=== PATIENT | female | born 2000 | race Caucasian/White ===

== ENCOUNTER 2024-01-28 08:52 | Emergency (ER) | payer OTHER ==
[2024-01-28 09:40] LABS: #Basophils 0.03 10x3/uL (0.0-0.2); #Eosinphils 0.03 10x3/uL (0.0-0.5); #Monocytes 1.57 10x3/uL (0.0-1.1); #Neutrophils 11.48 10x3/uL (1.5-8.4); %Basophils 0.2 % (0.0-2.0); %Eosinophils 0.2 % (0.0-6.0); %Lymphocytes 13.1 % (18.0-47.0); %Monocytes 10.4 % (0.0-10.0); %Neutrophils 75.7 % (40.0-75.0); Hematocrit 38.2 % (34.9-44.5); Hemoglobin 13.6 g/dL (12.0-15.5); Mean Corpuscular HGB CONC 35.6 g/dL (32.0-36.0); Mean Corpuscular Hemoglobin 30.5 pg (27.0-33.0); Mean Corpuscular Volume 85.7 fL (81.6-98.3); Mean Platelet Volume 9.1 fL (7.4-10.4); Platelet Count 367 10x3/uL (150-450); RBC Distribution Width 11.9 % (11.5-14.5); Red Blood Cell (RBC) Count 4.46 10x6/uL (3.90-5.03); White Blood Cell (WBC) Count 15.2 10x3/uL (3.5-10.5)
[2024-01-28] MEDS ORDERED: Ketorolac Tromethamine 30 MG (1 mL) VIAL ONE (09:45)
[2024-01-28 09:47] LABS: Bilirubin Neg (Negative); Blood, Urine Negative (Negative); Clarity Clear (Clear); Glucose, Urine (Dipstick) Normal (Negative); Ketone, Urine 150 mg/dL (Negative); Leukocyte 25 (Negative); Nitrite Negative (Negative); Protein, Urine (Dipstick) 30 mg/dl (Neg-Trace)
[2024-01-28 09:50] LABS: Pregnancy Test - Urine (BHCG) Negative (Negative); Pregu Control Background? CLEAR/WHITE (CLR/WHITE); Pregu Control Bar Appear? YES (CONTROL BAR)
[2024-01-28 09:54] LABS: ALT (SGPT) 13 U/L (8-55); AST (SGOT) 15 U/L (5-34); Albumin 3.8 g/dL (3.5-5.0); Alkaline Phosphatase 100 U/L (40-110); Anion Gap 17 mmol/L (10-20); BUN (Urea Nitrogen) 8 mg/dL (7.0-18.7); Calc. Creatinine Clearance 0 mL/min (70-130); Calcium 9.9 mg/dL (7.8-10.44); Carbon Dioxide 20 mmol/L (22-29); Chloride 101 mmol/L (98-107); Estimated GFR 111; Glucose 85 mg/dL (70-105); Lipase 7 U/L (8-78); Potassium 3.6 mmol/L (3.5-5.1); Protein, Total 7.8 g/dL (6.0-8.3); Sodium 134 mmol/L (136-145)
[2024-01-28 10:16] LABS: CAUTI Indications for Culture Pelvic or flank pain; RBC/HPF None Seen HPF (0-3); Squamous Epithelial 0-3 HPF (0-3); WBC/HPF 0-3 HPF (0-3)
[2024-01-28 10:17] LABS: Bacteria/HPF 4+ HPF (None Seen); Mucous/LPF 3+ LPF (<2+); Urine Culture Reflex No No
[2024-01-28] MEDS ORDERED: Acetaminophen 325 MG TAB ONE (11:34)
== END 2024-01-28 13:31 | disposition home or self-care (01) ==
LOC: CSHERS 08:52
DX: N83.201 Unspecified ovarian cyst, right side (principal); N39.0 Urinary tract infection, site not specified; D72.829 Elevated white blood cell count, unspecified; R11.10 Vomiting, unspecified
CPT/HCPCS: 36415; 74177; 76856; 80053; 81001; 81025; 83690; 85025; 87086; 96361; 96374; J1885

== ENCOUNTER 2024-02-01 13:26 | Inpatient (IN) | payer OTHER ==
[~2024-02-01 13:26] MED LIST: Iopamidol 370 76% 100 ML VIAL ONE
[2024-02-01 14:26] LABS: ALT (SGPT) 19 U/L (8-55); AST (SGOT) 23 U/L (5-34); Albumin 2.7 g/dL (3.5-5.0); Alkaline Phosphatase 184 U/L (40-110); Anion Gap 13 mmol/L (10-20); BUN (Urea Nitrogen) 7 mg/dL (7.0-18.7); Bilirubin, Total 0.8 mg/dL (0.2-1.2); Calc. Creatinine Clearance 0 mL/min (70-130); Calcium 9.2 mg/dL (7.8-10.44); Carbon Dioxide 21 mmol/L (22-29); Chloride 102 mmol/L (98-107); Estimated GFR 103; Glucose 119 mg/dL (70-105); Potassium 3.8 mmol/L (3.5-5.1); Protein, Total 6.7 g/dL (6.0-8.3); Sodium 132 mmol/L (136-145)
[2024-02-01 14:45] LABS: Bilirubin 1+ (Negative); Blood, Urine Negative (Negative); Clarity Clear (Clear); Glucose, Urine (Dipstick) Normal (Negative); Ketone, Urine 15 mg/dL (Negative); Leukocyte 25 (Negative); Nitrite Negative (Negative); Protein, Urine (Dipstick) 100 mg/dl (Neg-Trace); Specific Gravity, Urine 1.015 (1.005-1.030); Urobilinogen 12 mg/dL (Less than 2)
[2024-02-01] MEDS ORDERED: Ketorolac Tromethamine 30 MG (1 mL) VIAL ONE (14:49)
[2024-02-01] MEDS ORDERED: Ondansetron PF 4 MG/2 ML Vial ONE ×2 (14:49→18:20)
[2024-02-01] MEDS ORDERED: Piperacillin/Tazobactam 4.5 GM VIAL ONE (14:50)
[2024-02-01 14:54] LABS: #Basophils 0.04 10x3/uL (0.0-0.2); #Eosinphils 0.03 10x3/uL (0.0-0.5); #Monocytes 0.26 10x3/uL (0.0-1.1); #Neutrophils 13.92 10x3/uL (1.5-8.4); %Basophils 0.3 % (0.0-2.0); %Eosinophils 0.2 % (0.0-6.0); %Lymphocytes 2.6 % (18.0-47.0); %Monocytes 1.7 % (0.0-10.0); %Neutrophils 93.6 % (40.0-75.0); Hematocrit 33.3 % (34.9-44.5); Hemoglobin 11.2 g/dL (12.0-15.5); Mean Corpuscular HGB CONC 33.6 g/dL (32.0-36.0); Mean Corpuscular Hemoglobin 29.6 pg (27.0-33.0); Mean Corpuscular Volume 87.9 fL (81.6-98.3); Mean Platelet Volume 9.7 fL (7.4-10.4); Platelet Count 334 10x3/uL (150-450); RBC Distribution Width 12.4 % (11.5-14.5); Red Blood Cell (RBC) Count 3.79 10x6/uL (3.90-5.03); White Blood Cell (WBC) Count 14.9 10x3/uL (3.5-10.5)
[2024-02-01 15:53] LABS: CAUTI Indications for Culture Pelvic or flank pain; RBC/HPF 0-3 HPF (0-3)
[2024-02-01 15:54] LABS: Bacteria/HPF 3+ HPF (None Seen); Mucous/LPF 3+ LPF (<2+); Transitional Epithelial 0-3 HPF (None Seen)
[2024-02-01 15:56] LABS: Urine Culture Reflex No No
[2024-02-01] MEDS ORDERED: Morphine 4 MG/ML VIAL ONE (18:20)
[2024-02-01] MEDS ORDERED: Ipratropium/Albuterol 3 ML NEB ONE (19:15)
[2024-02-01 21:50] LABS: Magnesium 1.6 mg/dL (1.6-2.6)
[2024-02-01 21:53] VITALS: BMI 23.4
[2024-02-01] MEDS: Morphine 4 MG/ML VIAL SLOW IVP PRN (22:30)
[2024-02-01] MEDS: Guaifenesin DM 100-10/5 ML UDCUP PO PRN (22:31)
[2024-02-01] MEDS: Metoclopramide HCl 10 MG (2 mL) VIAL IVP SCH (22:31)
[2024-02-01] MEDS: Azithromycin 500 MG in Sodium Chloride 0.9% 250 ML 250 ML IVPB SCH (22:32)
[2024-02-01] MEDS: NS 0.9% w/ 20 MEQ KCL 1,000 ML/1,000 ML BAG IV SCH (22:32)
[2024-02-01] MEDS: Acetaminophen 325 MG TAB PO PRN (22:45)
[2024-02-02] MEDS: Lactated Ringer's 1,000 ML IV SCH (00:13)
[2024-02-02] MEDS: Piperacillin/Tazobactam 3.375 GM in Sodium Chloride 0.9% 100 ML IVPB SCH ×2 (00:14→04:09)
[2024-02-02] MEDS: FLU (Fluarix Triv) TS24-25(6MOS UP)/PF 45 MCG/0.5 ML Syringe IM ONE (02:30)
[2024-02-02] MEDS: Magnesium 2 GM/50 ML(in water) 2 GM in Premix 1 BAG IVPB SCH (04:28)
[2024-02-02 04:38] LABS: Anion Gap 14 mmol/L (10-20); BUN (Urea Nitrogen) 5 mg/dL (7.0-18.7); Calc. Creatinine Clearance 108 mL/min (70-130); Calcium 7.7 mg/dL (7.8-10.44); Carbon Dioxide 18 mmol/L (22-29); Chloride 110 mmol/L (98-107); Estimated GFR 124; Glucose 84 mg/dL (70-105); Potassium 3.5 mmol/L (3.5-5.1); Sodium 138 mmol/L (136-145)
[2024-02-02 04:45] LABS: #Basophils 0.02 10x3/uL (0.0-0.2); #Eosinphils 0.03 10x3/uL (0.0-0.5); #Monocytes 0.33 10x3/uL (0.0-1.1); #Neutrophils 9.49 10x3/uL (1.5-8.4); %Basophils 0.2 % (0.0-2.0); %Eosinophils 0.3 % (0.0-6.0); %Lymphocytes 6.3 % (18.0-47.0); %Monocytes 3.1 % (0.0-10.0); %Neutrophils 88.2 % (40.0-75.0); Hematocrit 28.5 % (34.9-44.5); Hemoglobin 9.5 g/dL (12.0-15.5); Mean Corpuscular HGB CONC 33.3 g/dL (32.0-36.0); Mean Corpuscular Hemoglobin 29.5 pg (27.0-33.0); Mean Corpuscular Volume 88.5 fL (81.6-98.3); Mean Platelet Volume 9.8 fL (7.4-10.4); Platelet Count 281 10x3/uL (150-450); RBC Distribution Width 12.5 % (11.5-14.5); Red Blood Cell (RBC) Count 3.22 10x6/uL (3.90-5.03); White Blood Cell (WBC) Count 10.8 10x3/uL (3.5-10.5)
[2024-02-02] MEDS: NS 0.9% w/ 20 MEQ KCL 1,000 ML/1,000 ML BAG IV SCH (07:09)
[2024-02-02] MEDS: Enoxaparin 40 MG (0.4 mL) SYRINGE SC SCH (09:06)
[2024-02-02 10:54] LABS: Troponin I Less than 0.010 ng/mL (< 0.028)
[2024-02-02] MEDS: Ipratropium Bromide 2.5 ml Neb NEB SCH (10:57)
[2024-02-02] MEDS: Lorazepam 2 MG/ML VIAL SLOW IVP PRN (10:59)
[2024-02-02 12:25] VITALS: BP 114/72; TEMP 100.4
[2024-02-02] MEDS: VANCOMYCIN 1.25 GM/250 ML BAG 1.25 GM in Premix 1 BAG IVPB SCH (12:54)
[2024-02-02] MEDS: D5 LR w/20 mEq KCL 1,000 ML IV SCH (13:16)
[2024-02-02] MEDS ORDERED: Vancomycin HCl 750 MG in Sodium Chloride 0.9% 250 ML 250 ML IVPB SCH (21:00)
== END 2024-02-02 17:09 | disposition still patient (30) | DRG 871 ==
LOC: CSHERS 13:26 → CSHTELE 21:24
PROVIDERS: ADMIT Family Medicine; ATTEND Internal Medicine
DX: A41.59 Other Gram-negative sepsis (principal); J15.69 Pneumonia due to other Gram-negative bacteria; J96.01 Acute respiratory failure with hypoxia; E87.1 Hypo-osmolality and hyponatremia; K56.7 Ileus, unspecified; Z90.49 Acquired absence of other specified parts of digestive tract; F12.10 Cannabis abuse, uncomplicated; R65.20 Severe sepsis without septic shock; R50.82 Postprocedural fever; N94.89 Other specified conditions associated with female genital organs and menstrual cycle
CPT/HCPCS: 36415; 71045; 71275; 74177; 80048; 80053; 81001; 83605; 83735; 83880; 84145; 84484; 85025; 87040; 93005; 93306; 94640; 94660; 94760; 96365; 96366; 96375; 96376; J0456; J1650; J1885; J2060; J2272; J2405; J2543; J2765; J3370; J3475; J3480; J7050; J7120; J7620; J7644; Q9967